=== PATIENT | female | born 1975 | race Caucasian/White ===

== ENCOUNTER 2022-02-07 11:32 | Day surgery (SDCO) | payer OTHER ==
[~2022-02-07] VITALS: Ht 172.7 cm; Wt 91.7 kg
[~2022-02-07 11:32] MED LIST: PERCOCET 5-3251 EACH PO
[2022-02-07] MEDS ORDERED: VENTOLIN HFA18 GM INH (12:14)
[2022-02-07 12:33] LABS: BASOPHIL 0.3 % (0-2); EOSINOPHIL 0.1 % (0-5); HCT 39.6 % (37.0-47.0); HGB 13.5 g/dl (12.5-16.0); LYMPHOCYTE 16.4 % (15-48); MCH 31.4 pg (25.0-31.0); MCHC 34.1 g/dL (32.0-36.0); MCV 92.1 fL (78.0-100.0); MONOCYTE 7.3 % (0-12); MPV 10.7 fL (6.0-9.5); NEUTROPHIL 75.5 % (41-80); NRBC 0; PLT 328 K/uL (150-400); WBC 13.6 K/uL (4.0-10.5)
[2022-02-07 12:56] LABS: BILIRUBIN - TOTAL 0.3 mg/dL (0.2-1.0); BUN/CREAT RATIO (CALC) 19.2 RATIO; CREATININE 0.73 mg/dL (0.51-0.95); GLOBULIN (CALCULATION) 4.2 g/dL; POTASSIUM 3.5 mmol/L (3.5-5.1); TOTAL PROTEIN 8.2 g/dL (6.4-8.2)
[2022-02-07 15:58] LABS: BILIRUBIN NEGATIVE (NEGATIVE); BLOOD TRACE-INTACT Ery/uL (NEGATIVE); CLARITY CLEAR (CLEAR); COLOR YELLOW (YELLOW); GLUCOSE (U) NORMAL (NORMAL); LEUKOCYTES NEGATIVE Leu/uL (NEGATIVE); NITRITE NEGATIVE (NEGATIVE); PROTEIN NEGATIVE (NEGATIVE); UROBILINOGEN 0.2 mg/dL (0.2-1.0); pH 8.5 (5.0-9.0)
[2022-02-07 16:36] LABS: BACTERIA TRACE
[2022-02-07 16:37] LABS: URINARY WBC RARE
[2022-02-07 17:45] LABS: BASOPHIL 0.1 % (0-2); EOSINOPHIL 0 % (0-5); HCT 38.2 % (37.0-47.0); HGB 12.7 g/dl (12.5-16.0); LYMPHOCYTE 7.3 % (15-48); MCH 31.1 pg (25.0-31.0); MCHC 33.2 g/dL (32.0-36.0); MCV 93.6 fL (78.0-100.0); MONOCYTE 3.9 % (0-12); MPV 10.6 fL (6.0-9.5); NEUTROPHIL 88.1 % (41-80); NRBC 0; PLT 298 K/uL (150-400); RBC 4.08 M/uL (4.20-5.40); RDW 13.1 % (11.5-14.0); WBC 13.7 K/uL (4.0-10.5)
[2022-02-07] MEDS ORDERED: MULTI-VITAMIN1 EACH PO (20:04)
[2022-02-08 07:18] LABS: BASOPHIL 0.2 % (0-2); EOSINOPHIL 0.3 % (0-5); HCT 36.9 % (37.0-47.0); HGB 12.1 g/dl (12.5-16.0); LYMPHOCYTE 23.5 % (15-48); MCHC 32.8 g/dL (32.0-36.0); MCV 94.6 fL (78.0-100.0); MONOCYTE 8.3 % (0-12); MPV 10.8 fL (6.0-9.5); NEUTROPHIL 67.4 % (41-80); PLT 266 K/uL (150-400); RDW 13.6 % (11.5-14.0); WBC 9.6 K/uL (4.0-10.5)
[2022-02-08 07:23] LABS: INR 1.15 (0.9-1.2); PROTHROMBIN TIME 14.1 SECONDS (11.8-13.4)
[2022-02-08 07:30] LABS: LACTIC ACID 0.6 mmol/L (0.4-1.9)
[2022-02-08 07:40] LABS: ALBUMIN 3.2 g/dL (3.4-5.0); ALKALINE PHOSHATASE 60 U/L (46-116); ALT 12 U/L (14-59); AST 11 U/L (15-37); BILIRUBIN - TOTAL 0.4 mg/dL (0.2-1.0); BUN 7 mg/dL (7-18); BUN/CREAT RATIO (CALC) 11.9 RATIO; CHLORIDE 107 mmol/L (98-107); CO2 (BICARBONATE) 23 mmol/L (21-32); CREATININE 0.59 mg/dL (0.51-0.95); GLOBULIN (CALCULATION) 3.1 g/dL; GLUCOSE 92 mg/dL (74-106); POTASSIUM 3.8 mmol/L (3.5-5.1); TOTAL PROTEIN 6.3 g/dL (6.4-8.2)
[2022-02-08 07:58] LABS: C-REACTIVE PROTEIN < 0.20 mg/dL (<=0.90)
[2022-02-08 08:02] LABS: EOSINOPHIL(M) 1 % (0-5); LYMPHOCYTE(M) 24 % (15-48); MONOCYTE(M) 8 % (0-12); NEUTROPHILS(M) 66 % (41-80); NRBC 0; TOTAL CELL COUNT 100; VARIANT LYMPHOCYTE 1
[2022-02-08 08:03] LABS: PLATELET ESTIMATE NORMAL; PLATELET MORPHOLOGY NORMAL
[2022-02-08] MEDS ORDERED: CIPRO250 MG PO (13:04)
[2022-02-08] MEDS ORDERED: METRONIDAZOLE500 MG PO (13:04)
== END 2022-02-08 14:02 | disposition home or self-care (01) ==
LOC: FER 11:32 → FMS 18:26
PROVIDERS: Emergency Medicine; Internal Medicine; Physician Assistant; ADMIT Internal Medicine
DX: K52.9 Noninfective gastroenteritis and colitis, unspecified (principal); Z86.16 Personal history of COVID-19; Z72.89 Other problems related to lifestyle
CPT/HCPCS: 36415; 80053; 81001; 83605; 83690; 84145; 85025; 85610; 86140; 87040; C9113; G0378; J1170; J1644; J2270; J2405; J2543; J7030; Q9967; U0002

== ENCOUNTER → 2022-04-02 | Day surgery (SDC) | payer OTHER ==
[~2022-04-02] VITALS: Ht 172.7 cm; Wt 89.0 kg
[~2022-04-02] MED LIST changes: +CENTRUM ADULT120 MCG PO; +CIPRO250 MG PO; +METRONIDAZOLE500 MG PO; +MULTI-VITAMIN1 EACH PO; +VENTOLIN HFA18 GM INH
== END | disposition home or self-care (01) ==
LOC: FAS 06:33
DX: K52.9 Noninfective gastroenteritis and colitis, unspecified (principal)
CPT/HCPCS: 84703; J2704; J7120